=== PATIENT | female | born 1935 | race Caucasian/White ===

== ENCOUNTER 2017-12-01 20:31 | Inpatient (IN) | payer MEDICARE, OTHER ==
[~2017-12-01] VITALS: Ht 170.2 cm; Wt 72.3 kg
[2017-12-01] MEDS ORDERED: albuterol 2.5 MG/3 ML nebule NEB ONE (20:50)
[2017-12-01] MEDS ORDERED: aspirin 81mg tab.chew PO ONE (20:50)
[2017-12-01] MEDS ORDERED: normal saline 1000ml 1,000 ML IV ONE ×2 (20:50→22:20)
[2017-12-01 20:55] LABS: BASOPHILS % (AUTO) 0.1 % (0-1); EOSINOPHILS # (AUTO) 0.2 X10'3 (0-0.9); EOSINOPHILS % (AUTO) 1.7 % (0-6); HEMATOCRIT 40.5 % (35.0-45.0); HEMOGLOBIN 13.9 g/dl (12.0-16.0); LYMPHOCYTES # (AUTO) 3.4 X10'3 (1.1-4.8); LYMPHOCYTES % (AUTO) 25.8 % (21-51); MEAN CORPUSCULAR HEMOGLOBIN 30.6 PG (27.0-31.0); MEAN CORPUSCULAR HGB CONC 34.4 % (33.0-36.5); MEAN CORPUSCULAR VOLUME 89.1 FL (78-98); MEAN PLATELET VOLUME 7.6 FL (7.4-10.4); MONOCYTES # (AUTO) 0.2 X10'3 (0-0.9); MONOCYTES % (AUTO) 1.6 % (2-12); NEUTROPHILS # (AUTO) 9.2 X10'3 (1.8-7.7); NEUTROPHILS % (AUTO) 70.8 % (42-75); PLATELET COUNT 255 X10'3 (140-440); RED BLOOD COUNT 4.54 X10'6 (4.20-5.60); WHITE BLOOD COUNT 13.1 X10'3 (4.5-11.0)
[2017-12-01] MEDS ORDERED: ondansetron/PF 4mg/2ml inj IV ONE (21:10)
[2017-12-01 21:26] LABS: ALANINE AMINOTRANSFERASE 33 U/L (12-78); ALBUMIN 4.6 G/DL (3.4-5.0); ALBUMIN/GLOBULIN RATIO 1.2 (1.1-1.5); ALKALINE PHOSPHATASE 270 IU/L (46-116); ANION GAP 12 (8-16); ASPARTATE AMINO TRANSFERASE 28 U/L (10-37); BLOOD UREA NITROGEN 39 MG/DL (7-18); BUN/CREATININE RATIO 15.7 (6.6-38.0); CALCIUM 10.2 MG/DL (8.5-10.1); CHLORIDE 99 MMOL/L (99-107); CREATININE 2.48 MG/DL (0.40-0.90); GLUCOSE 117 MG/DL (70-104); POTASSIUM 4.6 MMOL/L (3.5-5.1); SODIUM 139 MMOL/L (135-145); TOTAL CARBON DIOXIDE 28.3 MMOL/L (24-32); TOTAL PROTEIN 8.5 G/DL (6.4-8.2); eGFR 19 ML/MIN
[2017-12-01 21:48] LABS: BILIRUBIN,TOTAL 0.5 MG/DL (0.1-1.0)
[2017-12-01 21:52] LABS: OCCULT BLOOD STOOL POSITIVE (Neg)
[2017-12-01] MEDS ORDERED: octreotide inj. 1,250 MCG in normal saline 250ml IV soln 243.75 ML IV SCH (22:50)
[2017-12-01] MEDS ORDERED: pantoprazole 40 MG vial IV ONE (22:50)
[2017-12-01] MEDS ORDERED: octreotide 100mcg/1 ml ampule IV ONE (22:50)
[2017-12-01 22:56] LABS: BASOPHILS % (AUTO) 0.1 % (0-1); EOSINOPHILS # (AUTO) 0.1 X10'3 (0-0.9); EOSINOPHILS % (AUTO) 0.7 % (0-6); HEMATOCRIT 41.9 % (35.0-45.0); HEMOGLOBIN 13.7 g/dl (12.0-16.0); LYMPHOCYTES # (AUTO) 1.5 X10'3 (1.1-4.8); LYMPHOCYTES % (AUTO) 7.7 % (21-51); MEAN CORPUSCULAR HEMOGLOBIN 29.6 PG (27.0-31.0); MEAN CORPUSCULAR HGB CONC 32.8 % (33.0-36.5); MEAN CORPUSCULAR VOLUME 90.2 FL (78-98); MEAN PLATELET VOLUME 7.8 FL (7.4-10.4); MONOCYTES # (AUTO) 0.6 X10'3 (0-0.9); MONOCYTES % (AUTO) 3.2 % (2-12); NEUTROPHILS % (AUTO) 88.3 % (42-75); PLATELET COUNT 312 X10'3 (140-440); RED BLOOD COUNT 4.65 X10'6 (4.20-5.60); RED CELL DISTRIBUTION WIDTH 13.8 % (11.5-14.5); WHITE BLOOD COUNT 19.3 X10'3 (4.5-11.0)
[2017-12-01 23:06] LABS: PARTIAL THROMBOPLASTIN TIME 22 SECONDS (22-32); PROTHROMBIN TIME 10.1 SECONDS (9.0-12.0)
[2017-12-01] MEDS ORDERED: octreotide 200mcg/ml 5ml vial ONE (23:26)
[2017-12-02] VITALS (17 sets, daily range): BP systolic 112–156; BP diastolic 60–78
[2017-12-02] MEDS ORDERED: LISI-600 PO (00:06)
[2017-12-02] MEDS ORDERED: SIMV80TA2 PO (00:06)
[2017-12-02] MEDS ORDERED: FURO-150 PO (00:06)
[2017-12-02] MEDS ORDERED: NIFE90TA2 PO (00:06)
[2017-12-02] MEDS ORDERED: NORT10CA2 PO (00:06)
[2017-12-02] MEDS ORDERED: CEFP200T13 PO (00:06)
[2017-12-02] MEDS ORDERED: FLUO20CA39 PO (00:06)
[2017-12-02] MEDS ORDERED: acetaminophen 325mg tablet PO PRN ×2 (00:30)
[2017-12-02] MEDS ORDERED: ondansetron/PF 4mg/2ml inj IV PRN (00:30)
[2017-12-02] MEDS ORDERED: magnesium hydroxide 30ml (MOM) UD suspension PO PRN (00:30)
[2017-12-02] MEDS ORDERED: mag hydrox/Alum hydrox/simeth 30ml oral suspension PO PRN (00:30)
[2017-12-02] MEDS: pantoprazole 40MG/NS 100ML BAG 100 ML IV SCH ×3 (01:44→11:00)
[2017-12-02] MEDS: normal saline 1000ml 1,000 ML IV SCH ×2 (01:44→10:29)
[2017-12-02 03:34] LABS: BASOPHILS % (AUTO) 0 % (0-1); EOSINOPHILS # (AUTO) 0.1 X10'3 (0-0.9); EOSINOPHILS % (AUTO) 0.7 % (0-6); HEMATOCRIT 40.6 % (35.0-45.0); HEMOGLOBIN 13.8 g/dl (12.0-16.0); LYMPHOCYTES # (AUTO) 0.6 X10'3 (1.1-4.8); LYMPHOCYTES % (AUTO) 3.4 % (21-51); MEAN CORPUSCULAR HEMOGLOBIN 30.4 PG (27.0-31.0); MEAN CORPUSCULAR HGB CONC 33.9 % (33.0-36.5); MEAN CORPUSCULAR VOLUME 89.5 FL (78-98); MEAN PLATELET VOLUME 7.9 FL (7.4-10.4); MONOCYTES % (AUTO) 5.7 % (2-12); NEUTROPHILS % (AUTO) 90.2 % (42-75); PLATELET COUNT 271 X10'3 (140-440); RED BLOOD COUNT 4.53 X10'6 (4.20-5.60); RED CELL DISTRIBUTION WIDTH 14.4 % (11.5-14.5); WHITE BLOOD COUNT 17.7 X10'3 (4.5-11.0)
[2017-12-02 05:59] LABS: BASOPHILS % (AUTO) 0 % (0-1); EOSINOPHILS # (AUTO) 0.1 X10'3 (0-0.9); EOSINOPHILS % (AUTO) 0.6 % (0-6); HEMATOCRIT 41.2 % (35.0-45.0); HEMOGLOBIN 14.1 g/dl (12.0-16.0); LYMPHOCYTES # (AUTO) 0.5 X10'3 (1.1-4.8); LYMPHOCYTES % (AUTO) 3.1 % (21-51); MEAN CORPUSCULAR HEMOGLOBIN 30.5 PG (27.0-31.0); MEAN CORPUSCULAR HGB CONC 34.3 % (33.0-36.5); MEAN PLATELET VOLUME 7.7 FL (7.4-10.4); MONOCYTES # (AUTO) 0.8 X10'3 (0-0.9); MONOCYTES % (AUTO) 4.7 % (2-12); NEUTROPHILS % (AUTO) 91.6 % (42-75); PLATELET COUNT 276 X10'3 (140-440); RED BLOOD COUNT 4.63 X10'6 (4.20-5.60); RED CELL DISTRIBUTION WIDTH 14.2 % (11.5-14.5); WHITE BLOOD COUNT 16.4 X10'3 (4.5-11.0)
[2017-12-02] MEDS: atorvastatin 20mg tablet PO SCH (08:00)
[2017-12-02] MEDS: nortriptyline 10mg capsule PO SCH (08:00)
[2017-12-02] MEDS: FLUoxetine 20mg capsule PO SCH (08:00)
[2017-12-02] MEDS ORDERED: normal saline 1000ml 1,000 ML IV SCH (08:31)
[2017-12-02] MEDS ORDERED: LIDOcaine Viscous 15ml cup PO ONE (08:35)
[2017-12-02] MEDS ORDERED: MIDAZolam 5mg/5ml vial IV PRN (08:35)
[2017-12-02] MEDS ORDERED: fentaNYL/PF 50MCG/1 ML 2ML syringe IV PRN (08:35)
[2017-12-02] MEDS ORDERED: simethicone 40mg/0.6ml oral drops 30ml MC ONE (08:35)
[2017-12-02] MEDS ORDERED: MIDAZolam 5mg/5ml vial ONE (08:41)
[2017-12-02] MEDS ORDERED: LIDOcaine Viscous 15ml cup ONE (08:41)
[2017-12-02] MEDS ORDERED: fentaNYL/PF 50MCG/1 ML 2ML syringe ONE (08:41)
[2017-12-02] MEDS ORDERED: heparin sodium, porcine/PF 100unit/ml 5ML syringe ONE (11:34)
[2017-12-02 11:40] LABS: C DIFF ANTIGEN SEE COMMENTS (NEGATIVE); C DIFF SPECIMEN=DIARRHEA? ACCEPTABLE; C DIFF TOXIN (LAMP) NEGATIVE (NEG); C DIFFICILE TOXINS A&B NEGATIVE (Neg)
[2017-12-02 12:13] LABS: BASOPHILS % (AUTO) 0.1 % (0-1); EOSINOPHILS % (AUTO) 0 % (0-6); HEMATOCRIT 39.6 % (35.0-45.0); HEMOGLOBIN 13.5 g/dl (12.0-16.0); LYMPHOCYTES # (AUTO) 0.8 X10'3 (1.1-4.8); LYMPHOCYTES % (AUTO) 5.1 % (21-51); MEAN CORPUSCULAR HEMOGLOBIN 30.6 PG (27.0-31.0); MEAN CORPUSCULAR HGB CONC 34.1 % (33.0-36.5); MEAN CORPUSCULAR VOLUME 89.8 FL (78-98); MEAN PLATELET VOLUME 7.5 FL (7.4-10.4); MONOCYTES # (AUTO) 0.7 X10'3 (0-0.9); MONOCYTES % (AUTO) 4.5 % (2-12); NEUTROPHILS # (AUTO) 13.9 X10'3 (1.8-7.7); NEUTROPHILS % (AUTO) 90.3 % (42-75); PLATELET COUNT 284 X10'3 (140-440); RED BLOOD COUNT 4.41 X10'6 (4.20-5.60); RED CELL DISTRIBUTION WIDTH 14.5 % (11.5-14.5); WHITE BLOOD COUNT 15.4 X10'3 (4.5-11.0)
[2017-12-02 14:47] LABS: ALANINE AMINOTRANSFERASE 29 U/L (12-78); ALBUMIN 3.5 G/DL (3.4-5.0); ALBUMIN/GLOBULIN RATIO 0.9 (1.1-1.5); ALKALINE PHOSPHATASE 134 IU/L (46-116); ANION GAP 17 (8-16); ASPARTATE AMINO TRANSFERASE 33 U/L (10-37); BILIRUBIN,TOTAL 0.3 MG/DL (0.1-1.0); BLOOD UREA NITROGEN 43 MG/DL (7-18); CALCIUM 8.2 MG/DL (8.5-10.1); CHLORIDE 104 MMOL/L (99-107); CREATININE 2.39 MG/DL (0.40-0.90); GLUCOSE 212 MG/DL (70-104); SODIUM 140 MMOL/L (135-145); TOTAL CARBON DIOXIDE 19.1 MMOL/L (24-32); TOTAL PROTEIN 7.2 G/DL (6.4-8.2); eGFR 19 ML/MIN
[2017-12-02 14:49] LABS: CLARITY,URINE SLIGHTLY CLOUDY (Clear); COLOR,URINE YELLOW (Yellow); GLUCOSE, URINE NEGATIVE (Neg); KETONES,URINE NEGATIVE (Neg); LEUKOCYTE ESTERASE ,URINE NEGATIVE (Neg); NITRITES, URINE NEGATIVE (Neg); OCCULT BLOOD,URINE SMALL (Neg); PH,URINE 5.5 (4.8-8.0); PROTEIN,URINE TRACE mg/dl (Neg); UROBILINOGEN,URINE 0.2 E.U/dL (0.2-1.0)
[2017-12-02 14:51] LABS: POTASSIUM 5.4 MMOL/L (3.5-5.1)
[2017-12-02 14:55] LABS: UA COLLECTION TYPE FOLEY CATH
[2017-12-02 14:56] LABS: BACTERIA,URINE NONE SEEN /HPF (Neg); RBC,URINE 0-2 /HPF (0-2); SQUAMOUS EPITHELIAL CELL,UR FEW /LPF (FEW); WBC,URINE NONE SEEN /HPF (0-4)
[2017-12-02 14:57] LABS: MUCUS STRANDS FEW /LPF (Neg)
[2017-12-02 16:23] LABS: BASOPHILS % (AUTO) 0.1 % (0-1); EOSINOPHILS % (AUTO) 0 % (0-6); HEMATOCRIT 37.7 % (35.0-45.0); HEMOGLOBIN 12.7 g/dl (12.0-16.0); LYMPHOCYTES # (AUTO) 1.1 X10'3 (1.1-4.8); LYMPHOCYTES % (AUTO) 6.5 % (21-51); MEAN CORPUSCULAR HEMOGLOBIN 30.3 PG (27.0-31.0); MEAN CORPUSCULAR HGB CONC 33.7 % (33.0-36.5); MEAN CORPUSCULAR VOLUME 89.8 FL (78-98); MEAN PLATELET VOLUME 7.5 FL (7.4-10.4); NEUTROPHILS # (AUTO) 14.3 X10'3 (1.8-7.7); NEUTROPHILS % (AUTO) 87.4 % (42-75); PLATELET COUNT 288 X10'3 (140-440); RED CELL DISTRIBUTION WIDTH 14.5 % (11.5-14.5); WHITE BLOOD COUNT 16.4 X10'3 (4.5-11.0)
[2017-12-02] MEDS: pantoprazole 40 MG vial IV SCH (20:12)
[2017-12-02 21:01] LABS: BASOPHILS % (AUTO) 0.1 % (0-1); EOSINOPHILS # (AUTO) 0.1 X10'3 (0-0.9); EOSINOPHILS % (AUTO) 0.7 % (0-6); HEMATOCRIT 38.5 % (35.0-45.0); HEMOGLOBIN 12.8 g/dl (12.0-16.0); LYMPHOCYTES # (AUTO) 1.4 X10'3 (1.1-4.8); MEAN CORPUSCULAR HEMOGLOBIN 30.2 PG (27.0-31.0); MEAN CORPUSCULAR HGB CONC 33.3 % (33.0-36.5); MEAN CORPUSCULAR VOLUME 90.5 FL (78-98); MEAN PLATELET VOLUME 7.4 FL (7.4-10.4); MONOCYTES # (AUTO) 1.3 X10'3 (0-0.9); MONOCYTES % (AUTO) 7.9 % (2-12); NEUTROPHILS # (AUTO) 13.1 X10'3 (1.8-7.7); NEUTROPHILS % (AUTO) 82.3 % (42-75); PLATELET COUNT 268 X10'3 (140-440); RED BLOOD COUNT 4.25 X10'6 (4.20-5.60); RED CELL DISTRIBUTION WIDTH 14.7 % (11.5-14.5); WHITE BLOOD COUNT 15.9 X10'3 (4.5-11.0)
[2017-12-03] VITALS (9 sets, daily range): BP systolic 115–168; BP diastolic 55–81
[2017-12-03] MEDS: normal saline 1000ml 1,000 ML IV SCH ×3 (03:10→16:35)
[2017-12-03 05:44] LABS: BASOPHILS % (AUTO) 0 % (0-1); EOSINOPHILS # (AUTO) 0.1 X10'3 (0-0.9); EOSINOPHILS % (AUTO) 0.7 % (0-6); HEMATOCRIT 34.1 % (35.0-45.0); HEMOGLOBIN 11.5 g/dl (12.0-16.0); LYMPHOCYTES # (AUTO) 1.7 X10'3 (1.1-4.8); LYMPHOCYTES % (AUTO) 13.4 % (21-51); MEAN CORPUSCULAR HEMOGLOBIN 30.4 PG (27.0-31.0); MEAN CORPUSCULAR HGB CONC 33.8 % (33.0-36.5); MEAN CORPUSCULAR VOLUME 89.7 FL (78-98); MEAN PLATELET VOLUME 7.8 FL (7.4-10.4); MONOCYTES # (AUTO) 1.2 X10'3 (0-0.9); NEUTROPHILS # (AUTO) 9.5 X10'3 (1.8-7.7); NEUTROPHILS % (AUTO) 75.9 % (42-75); PLATELET COUNT 236 X10'3 (140-440); RED CELL DISTRIBUTION WIDTH 14.2 % (11.5-14.5); WHITE BLOOD COUNT 12.5 X10'3 (4.5-11.0)
[2017-12-03 06:21] LABS: ALBUMIN 2.7 G/DL (3.4-5.0); ANION GAP 13 (8-16); BLOOD UREA NITROGEN 34 MG/DL (7-18); BUN/CREATININE RATIO 22.5 (6.6-38.0); CALCIUM 7.9 MG/DL (8.5-10.1); CHLORIDE 104 MMOL/L (99-107); CREATININE 1.51 MG/DL (0.40-0.90); GLUCOSE 106 MG/DL (70-104); POTASSIUM 4.6 MMOL/L (3.5-5.1); SODIUM 136 MMOL/L (135-145); TOTAL CARBON DIOXIDE 19.2 MMOL/L (24-32); eGFR 33 ML/MIN
[2017-12-03] MEDS: FLUoxetine 20mg capsule PO SCH (07:56)
[2017-12-03] MEDS: nortriptyline 10mg capsule PO SCH (07:56)
[2017-12-03] MEDS: lisinopril 20mg tablet PO SCH (07:56)
[2017-12-03] MEDS: NIFEdipine XL 30mg tablet PO SCH (07:57)
[2017-12-03] MEDS: pantoprazole 40 MG vial IV SCH (07:57)
[2017-12-03] MEDS: atorvastatin 20mg tablet PO SCH (07:57)
[2017-12-03] MEDS ORDERED: PEG 3350/Na sulf,bicarb,Cl/KCl oral sol 4 liter bottle PO ONE (09:35)
[2017-12-03] MEDS: pantoprazole 40mg Tablet.DR PO SCH (16:35)
[2017-12-04] VITALS (15 sets, daily range): BP systolic 124–152; BP diastolic 7–79
[2017-12-04] MEDS: normal saline 1000ml 1,000 ML IV SCH ×3 (00:52→22:35)
[2017-12-04 05:21] LABS: ALBUMIN 2.4 G/DL (3.4-5.0); ANION GAP 8 (8-16); BASOPHILS % (AUTO) 0.1 % (0-1); BLOOD UREA NITROGEN 17 MG/DL (7-18); BUN/CREATININE RATIO 17.5 (6.6-38.0); CALCIUM 7.6 MG/DL (8.5-10.1); CHLORIDE 106 MMOL/L (99-107); CREATININE 0.97 MG/DL (0.40-0.90); EOSINOPHILS % (AUTO) 0.1 % (0-6); GLUCOSE 105 MG/DL (70-104); HEMATOCRIT 30.1 % (35.0-45.0); HEMOGLOBIN 10.5 g/dl (12.0-16.0); LYMPHOCYTES # (AUTO) 1.2 X10'3 (1.1-4.8); LYMPHOCYTES % (AUTO) 8.3 % (21-51); MEAN CORPUSCULAR HEMOGLOBIN 30.7 PG (27.0-31.0); MEAN CORPUSCULAR HGB CONC 34.9 % (33.0-36.5); MEAN CORPUSCULAR VOLUME 87.8 FL (78-98); MEAN PLATELET VOLUME 7.8 FL (7.4-10.4); MONOCYTES # (AUTO) 1.2 X10'3 (0-0.9); MONOCYTES % (AUTO) 8.2 % (2-12); NEUTROPHILS # (AUTO) 11.7 X10'3 (1.8-7.7); NEUTROPHILS % (AUTO) 83.3 % (42-75); PLATELET COUNT 221 X10'3 (140-440); POTASSIUM 3.8 MMOL/L (3.5-5.1); RED BLOOD COUNT 3.42 X10'6 (4.20-5.60); SODIUM 138 MMOL/L (135-145); TOTAL CARBON DIOXIDE 24.1 MMOL/L (24-32); WHITE BLOOD COUNT 14.1 X10'3 (4.5-11.0); eGFR 55 ML/MIN
[2017-12-04] MEDS: pantoprazole 40mg Tablet.DR PO SCH ×2 (08:34→17:20)
[2017-12-04] MEDS: NIFEdipine XL 30mg tablet PO SCH (08:34)
[2017-12-04] MEDS: lisinopril 20mg tablet PO SCH (08:35)
[2017-12-04] MEDS: atorvastatin 20mg tablet PO SCH (08:35)
[2017-12-04] MEDS: FLUoxetine 20mg capsule PO SCH (08:35)
[2017-12-04] MEDS: nortriptyline 10mg capsule PO SCH (08:35)
[2017-12-04] MEDS ORDERED: normal saline 1000ml 1,000 ML IV SCH (13:56)
[2017-12-04] MEDS ORDERED: simethicone 40mg/0.6ml oral drops 30ml MC ONE (14:00)
[2017-12-04] MEDS ORDERED: fentaNYL/PF 50MCG/1 ML 2ML syringe IV PRN (14:00)
[2017-12-04] MEDS ORDERED: MIDAZolam 5mg/5ml vial IV PRN (14:00)
[2017-12-04] MEDS ORDERED: MIDAZolam 5mg/5ml vial ONE (14:25)
[2017-12-04] MEDS ORDERED: fentaNYL/PF 50MCG/1 ML 2ML syringe ONE (14:25)
[2017-12-05 03:00] VITALS: BP 138/69
[2017-12-05 05:33] LABS: BASOPHILS % (AUTO) 0.1 % (0-1); EOSINOPHILS # (AUTO) 0.2 X10'3 (0-0.9); EOSINOPHILS % (AUTO) 1.7 % (0-6); HEMATOCRIT 31.3 % (35.0-45.0); HEMOGLOBIN 10.7 g/dl (12.0-16.0); LYMPHOCYTES # (AUTO) 1.3 X10'3 (1.1-4.8); LYMPHOCYTES % (AUTO) 12.9 % (21-51); MEAN CORPUSCULAR HEMOGLOBIN 30.2 PG (27.0-31.0); MEAN CORPUSCULAR HGB CONC 34.1 % (33.0-36.5); MEAN CORPUSCULAR VOLUME 88.3 FL (78-98); MEAN PLATELET VOLUME 7.8 FL (7.4-10.4); MONOCYTES # (AUTO) 0.6 X10'3 (0-0.9); MONOCYTES % (AUTO) 6.5 % (2-12); NEUTROPHILS # (AUTO) 7.8 X10'3 (1.8-7.7); NEUTROPHILS % (AUTO) 78.8 % (42-75); PLATELET COUNT 258 X10'3 (140-440); RED BLOOD COUNT 3.55 X10'6 (4.20-5.60); WHITE BLOOD COUNT 9.9 X10'3 (4.5-11.0)
[2017-12-05 05:46] LABS: ALBUMIN 2.3 G/DL (3.4-5.0); ANION GAP 8 (8-16); BLOOD UREA NITROGEN 10 MG/DL (7-18); BUN/CREATININE RATIO 12.3 (6.6-38.0); CALCIUM 7.7 MG/DL (8.5-10.1); CHLORIDE 106 MMOL/L (99-107); CREATININE 0.81 MG/DL (0.40-0.90); GLUCOSE 77 MG/DL (70-104); POTASSIUM 3.4 MMOL/L (3.5-5.1); SODIUM 138 MMOL/L (135-145); TOTAL CARBON DIOXIDE 24.1 MMOL/L (24-32); eGFR 68 ML/MIN
[2017-12-05] MEDS ORDERED: magnesium 2GM in 50ml NS 50 ML IV PRN (06:55)
[2017-12-05] MEDS ORDERED: magnesium 4gm in 100ml NS 100 ML IV PRN (06:55)
[2017-12-05] MEDS ORDERED: potassium Cl 20 mEq SR tablet PO PRN (06:55)
[2017-12-05] MEDS ORDERED: potassium Cl 40MEQ/NS 500ml 500 ML IV PRN ×2 (06:55)
[2017-12-05] MEDS ORDERED: magnesium Cl slow-release 64mg tablet PO PRN (06:55)
[2017-12-05 07:00] VITALS: BP 147/70
[2017-12-05] MEDS: lisinopril 20mg tablet PO SCH (08:08)
[2017-12-05] MEDS: FLUoxetine 20mg capsule PO SCH (08:08)
[2017-12-05] MEDS: pantoprazole 40mg Tablet.DR PO SCH (08:08)
[2017-12-05] MEDS: atorvastatin 20mg tablet PO SCH (08:08)
[2017-12-05] MEDS: NIFEdipine XL 30mg tablet PO SCH (08:08)
[2017-12-05] MEDS: nortriptyline 10mg capsule PO SCH (08:08)
[2017-12-05] MEDS: potassium Cl 20 mEq SR tablet PO PRN ×2 (08:09→13:11)
[2017-12-05] MEDS: normal saline 1000ml 1,000 ML IV SCH (08:52)
[2017-12-05 11:00] VITALS: BP 138/68
[2017-12-05] MEDS ORDERED: PANT40TA4 PO (11:37)
[2017-12-05] MEDS ORDERED: VANC125C4 PO (11:37)
== END 2017-12-05 13:30 | disposition home or self-care (01) | DRG 682 ==
LOC: ER 20:33 → ED HOLD 12-02 00:29 → PCU 3S 12-02 01:07
PROVIDERS: ADMIT Internal Medicine; ATTEND Family Medicine
PROC: 0DJ08ZZ Inspection of Upper Intestinal Tract, Via Natural or Artificial Opening Endoscopic (ICD-10-PCS; principal; 2017-12-02)
PROC: 0DBE8ZX Excision of Large Intestine, Via Natural or Artificial Opening Endoscopic, Diagnostic (ICD-10-PCS; 2017-12-04)
DX: N17.9 Acute kidney failure, unspecified (principal); K26.4 Chronic or unspecified duodenal ulcer with hemorrhage; R71.0 Precipitous drop in hematocrit; Z95.1 Presence of aortocoronary bypass graft; D46.9 Myelodysplastic syndrome, unspecified; K21.0 Gastro-esophageal reflux disease with esophagitis; E78.00 Pure hypercholesterolemia, unspecified; F32.9 Major depressive disorder, single episode, unspecified; I10 Essential (primary) hypertension; I25.10 Atherosclerotic heart disease of native coronary artery without angina pectoris; K52.9 Noninfective gastroenteritis and colitis, unspecified; K59.00 Constipation, unspecified; Z79.82 Long term (current) use of aspirin; Z79.899 Other long term (current) drug therapy
CPT/HCPCS: 36415; 45380; 71045; 78278; 80048; 80053; 81001; 82272; 83605; 83880; 84484; 85025; 85610; 85730; 86885; 86900; 86901; 87040; 87070; 87324; 87449; 87493; 93005; 94640; 94760; 96365; 96375; 99285; A4620; A6250; A9560; C9113; G0500; J1642; J2250; J2354; J2405; J3010; J7030